=== PATIENT | female | born 1945 | race Caucasian/White ===

== ENCOUNTER 2019-03-13 12:17 | Emergency (ER) | payer MEDICARE, BC, OTHER ==
[2019-03-13] MEDS ORDERED: 0.9 % SODIUM CHLORIDE 1000ML 1,000 ML IV PRN (14:00)
--- NOTE | 2019-03-13 14:02 | Emergency Department Record ---
History of Present Illness - General Chief Complaint: Abdominal Pain Stated Complaint: RIGHT SIDE ABD PAIN Time Seen by Provider: 03/13/19 13:57 Source: Patient, RN notes reviewed Mode of Arrival: Ambulatory - History of Present Illness Initial Comments: right upper quad pain and radiates into her back and shoulder . Started 5 hours ago and pain almost gone now. Primary Dr Cammy Mckeon MD Complaint: Abdominal pain Onset/Timin -: Hour(s) Location: RLQ Radiation: RUQ Severity scale (1-10): 10 Quality: Cramping, Sharp Consistency: Intermittent Improves With: Nothing Worsens With: Nothing - Related Data Home Medications Medication Instructions Recorded Confirmed Last Taken Cholecalciferol (Vitamin D3) 50,000 units PO MONTHLY 03/13/19 03/13/19 03/13/19 [Vitamin D3] Denosumab [Prolia] 60 mg IM ASDIR 03/13/19 03/13/19 Unknown Losartan Potassium 50 mg PO DAILY 03/13/19 03/13/19 03/13/19 Previous Rx's Medication Instructions Recorded Dicyclomine HCl [Bentyl] 10 mg PO Q8H #30 cap 03/13/19 Allergies Allergy/AdvReac Type Severity Reaction Status Date / Time No Known Drug Allergies Allergy Verified 03/13/19 12:38 Travel Screening - Travel/Exposure Within Last 30 Days Have you traveled within the last 30 days?: No - Travel/Exposure Within Last Year Have you traveled outside the [place] in the last year?: No - Additonal Travel Details Have you been exposed to anyone with a communicable illness?: No - Travel Symptoms Symptom Screening: None Review of Systems Reviewed: No additional complaints except as noted below Constitutional: Reports: As per HPI. Denies: Chills, Fever, Malaise, Night sweats, Weakness, Weight change Eyes: Reports: As per HPI. Denies: Eye discharge, Eye pain, Photophobia, Vision change ENT: Reports: As per HPI. Denies: Congestion, Dental pain, Ear pain, Epistaxis, Hearing loss, Throat pain Respiratory: Reports: As per HPI. Denies: Cough, Dyspnea, Hemoptysis, Stridor, Wheezes Cardiovascular: Reports: As per HPI. Denies: Arrhythmia, Chest pain, Dyspnea on exertion, Edema, Murmurs, Orthopnea, Palpitations, Paroxysmal nocturnal dyspnea, Rheumatic Fever, Syncope Endocrine: Reports: As per HPI. Denies: Fatigue, Heat or cold intolerance, Polydipsia, Polyuria Gastrointestinal: Reports: As per HPI, Abdominal pain (right upper quad). Denies: Constipation, Diarrhea, Hematemesis, Hematochezia, Melena, Nausea, Vomiting Genitourinary: Reports: As per HPI. Denies: Abnormal menses, Discharge, Dyspareunia, Dysuria, Frequency, Hematuria, Incontinence, Retention, Urgency Musculoskeletal: Reports: As per HPI. Denies: Arthralgia, Back pain, Gout, Joint swelling, Myalgia, Neck pain Skin: Reports: As per HPI. Denies: Bruising, Change in color, Change in hair/nails, Lesions, Pruritus, Rash Neurological: Reports: As per HPI. Denies: Abnormal gait, Confusion, Headache, Numbness, Paresthesias, Seizure, Tingling, Tremors, Vertigo, Weakness Psychiatric: Reports: As per HPI. Denies: Anxiety, Auditory hallucinations, Depression, Homicidal thoughts, Suicidal thoughts, Visual hallucinations Hematological/Lymphatic: Reports: As per HPI. Denies: Anemia, Blood Clots, Easy bleeding, Easy bruising, Swollen glands Past Medical History - SOCIAL HISTORY Smoking Status: Never smoker Alcohol Use: Occasional Drug Use: None - RESPIRATORY Hx Respiratory Disorders: No - CARDIOVASCULAR Hx Cardio Disorders: No - NEURO Hx Neuro Disorders: No - GI Hx GI Disorders: Yes Comment:: Diarrhea "alot" - Hx Genitourinary Disorders: No - ENDOCRINE Hx Endocrine Disorders: No - MUSCULOSKELETAL Hx Musculoskeletal Disorders: No - PSYCH Hx Psych Problems: No - HEMATOLOGY/ONCOLOGY Hx Hematology/Oncology Disorders: No Family Medical History Any Significant Family History?: Yes Hx Dementia: Brother/Sister Hx Heart Disease: Mother, Brother/Sister Hx HTN: Mother, Brother/Sister Hx Stroke: Mother Physical Exam - General General Appearance: Alert, Oriented x3, Cooperative, No acute distress - Head Head exam: Normal inspection - Eye Eye exam: Normal appearance, PERRL Pupils: Normal accommodation - ENT ENT exam: Normal exam, Mucous membranes moist, Normal external ear exam, Normal orophraynx, TM's normal bilaterally Ear exam: Normal external inspection. negative: External canal tenderness Nasal Exam: Normal inspection. negative: Discharge, Sinus tenderness Mouth exam: Normal external inspection, Tongue normal Teeth exam: Normal inspection. negative: Dental caries Throat exam: Normal inspection. negative: Tonsillar erythema, Tonsillar exudate - Neck Neck exam: Normal inspection, Full ROM. negative: Tenderness - Respiratory Respiratory exam: Normal lung sounds bilaterally. negative: Respiratory distress - Cardiovascular Cardiovascular Exam: Regular rate, Normal rhythm, Normal heart sounds - GI/Abdominal GI/Abdominal exam: Soft, Normal bowel sounds, Tenderness (right upper quad pain and positive pringle sign) - Rectal Rectal exam: Deferred - exam: Deferred - Extremities Extremities exam: Normal inspection, Full ROM, Normal capillary refill. negative: Tenderness - Back Back exam: Reports: Normal inspection, Full ROM. Denies: Muscle spasm, Rash noted, Tenderness - Neurological Neurological exam: Alert, Normal gait, Oriented X3, Reflexes normal - Psychiatric Psychiatric exam: Normal affect, Normal mood - Skin Skin exam: Dry, Intact, Normal color, Warm Course Vital Signs 03/13/19 12:41 Temperature 98.6 F Pulse Rate 78 Respiratory 16 Rate Blood Pressure 130/55 Pulse Ox 100 Medical Decision Making - Data Complexity MDM Data: Labs Ordered and/or Reviewed (WBC 13,500, urine negative , sodium 132), X-Ray Ordered and/or Reviewed (No acute process, cystic mass in the left pelvis 5 cm possible ovarian cyst) - Lab Data Result diagrams: 03/13/19 14:00 03/13/19 14:00 Disposition Clinical Impression: Right upper quadrant abdominal pain, Biliary colic Ovarian cyst Qualifiers: Laterality: left Qualified Code(s): N83.202 - Unspecified ovarian cyst, left side Disposition: Home, Self-Care Condition: (1) Good Instructions: Abdominal Pain (ED) Additional Instructions: avoid greasy foods Prescriptions: Dicyclomine HCl [Bentyl] 10 mg PO Q8H #30 cap Forms: Patient Portal Access Time of Disposition: 17:18 Quality - Quality Measures Quality Measures: N/A - Blood Pressure Screening Does Patient Have Any of the Following: No Blood Pressure Classification: Pre-Hypertensive BP Reading Systolic Measurement: 130 Diastolic Measurement: 55 Screening for High Blood Pressure: < Pre-Hypertensive BP, F/U Documented > [G8950] Pre-Hypertensive Follow-up Interventions: Referral to alternative/primary care provider.
[2019-03-13 14:12] LABS: HEMATOCRIT 36.3 % (35.0-47.0); MEAN CELL VOLUME 84.8 fl (81-97); MEAN CORPUSCULAR HGB CONC 33.1 g/dl (32-36); MEAN PLATELET VOLUME 12.1 fl (7.4-10.4); PLATELET COUNT 233 K/uL (130-400); RED BLOOD COUNT 4.28 M/uL (3.80-5.40); RED CELL DISTRIBUTION WIDTH 14.5 % (11.5-14.5); WHITE BLOOD COUNT W/O DIFF 13.5 K/uL (4.2-12.2)
[2019-03-13 14:24] LABS: BLOOD UREA NITROGEN 11 mg/dL (8-23); CREATININE 0.8 mg/dL (0.5-0.9); EST GLOMERULAR FILTRATION RATE > 60 mL/min
[2019-03-13 14:25] LABS: LIPASE 17 U/L (13-60); TOTAL PROTEIN 7.1 g/dL (6.6-8.7)
[2019-03-13 14:27] LABS: GLUCOSE,RANDOM 91 mg/dL (74-109)
[2019-03-13 14:29] LABS: ALBUMIN 4.1 g/dL (4.0-5.0); ALT/SGPT 9 U/L (<33); AST/SGOT 17 U/L (10.0-35.0)
[2019-03-13 14:30] LABS: ALKALINE PHOSPHATASE 98 U/L (35-104); BILIRUBIN,DIRECT < 0.2 mg/dL (0-0.3)
[2019-03-13 14:31] LABS: ABSOLUTE NEUTROPHIL COUNT 12.11
[2019-03-13 16:23] LABS: URINE APPEARANCE CLEAR; URINE BILIRUBIN NEGATIVE (NEGATIVE); URINE BLOOD NEGATIVE (NEGATIVE); URINE COLOR YELLOW; URINE GLUCOSE (UA) NEGATIVE (NEGATIVE); URINE KETONE 15 mg/dL (NEGATIVE); URINE LEUKOCYTE ESTERASE NEGATIVE (NEGATIVE); URINE NITRITE NEGATIVE (NEGATIVE); URINE PROTEIN NEGATIVE (NEGATIVE); URINE UROBILINOGEN 0.2 E.U./dL (0.20 - 1.00)
--- NOTE | 2019-03-17 16:44 | CT SCAN REPORT ---
DATE: 03/13/2019 at 1425. EXAM: CT OF THE ABDOMEN AND PELVIS WITHOUT CONTRAST. HISTORY: WORSENING RIGHT LOWER QUADRANT PAIN. ELEVATED SERUM WHITE BLOOD CELL COUNT. PRIOR APPENDECTOMY IN 1994. TECHNIQUE: Helical CT examination of the abdomen and pelvis was performed without oral or intravenous contrast administration. Lack of oral and intravenous contrast utilization limits evaluation of the bowel and solid viscera, respectively. COMPARISON: None. FINDINGS: Minor dependent atelectasis in each lung base as well as minor linear scarring versus atelectasis. The wall of the distal esophagus appears mildly thickened likely due to incomplete distension, though a mucosal abnormality would be difficult to exclude. This appearance could also relate to a small, sliding-type hiatal hernia. The heart is not enlarged. No suspicious focal abnormality is demonstrated within the liver, spleen, pancreas, adrenal glands, nor kidneys. The left kidney does appear smaller than the right. This may be developmental or the result of mild atrophy. The gallbladder is unremarkable. No definite biliary ductal dilatation identified. No intra-abdominal nor retroperitoneal lymphadenopathy. There is diffuse atherosclerosis without focal aneurysmal dilatation of the abdominal aorta nor iliac arteries. The uterus is either atrophic or absent. No intrinsic urinary bladder abnormality is seen. There is a well-circumscribed fluid density mass in the left hemipelvis likely arising from the left ovary. This measures 3.9 x 3.5 x 5.3 cm. A benign ovarian cyst is the most likely etiology, though cystic neoplasm is not entirely excluded. If clinically warranted, this could be further evaluated with pelvic ultrasound to confirm its simple cystic appearance. No other evidence of pelvic mass nor adenopathy. There is diverticulosis of the distal colon without evidence of diverticulitis. No gross bowel dilatation nor bowel wall thickening. By history, the appendix is surgically absent. The cecum appears somewhat patulous/fluid distended measuring approximately 5.5 cm in diameter. This is not considered dilated. There is liquid stool from the level of the cecum to the distal transverse colon. No extraluminal air. No lytic or blastic bone lesion. There are degenerative changes scattered throughout the visualized spine associated with mild levoconvex scoliosis. IMPRESSION: 1. LACK OF ORAL AND INTRAVENOUS CONTRAST UTILIZATION LIMITS EVALUATION OF THE BOWEL AND SOLID VISCERA, RESPECTIVELY. 2. NO DEFINITE CT EVIDENCE OF AN ACUTE INTRA-ABDOMINAL NOR INTRAPELVIC PROCESS. 3. OCCASIONAL DIVERTICULA IN THE DISTAL COLON WITHOUT EVIDENCE OF DIVERTICULITIS. LIQUID STOOL WITHIN THE PROXIMAL COLON TO THE DISTAL TRANSVERSE LEVEL. 4. FLUID DENSITY MASS IN THE LEFT HEMIPELVIS MEASURING 5.3 CM IN MAXIMUM DIAMETER. WHILE A SIMPLE BENIGN CYST IS FAVORED, CYSTIC NEOPLASM IS NOT ENTIRELY EXCLUDED. IF CLINICALLY WARRANTED THIS MIGHT BE FURTHER CHARACTERIZED WITH PELVIC SONOGRAPHY. 5. ATROPHY OF THE UTERUS VERSUS HYSTERECTOMY. 6. MINOR LINEAR SCARRING VERSUS ATELECTASIS IN EACH LUNG BASE. 7. APPARENT MILD WALL THICKENING OF THE DISTAL ESOPHAGUS LIKELY RELATES TO INCOMPLETE DISTENSION. THIS APPEARANCE COULD ALSO RELATE TO A SMALL HIATAL HERNIA. Job Number: [id number] [facility]
== END 2019-03-13 17:46 | disposition home or self-care (01) ==
LOC: ER 12:17
DX: K80.50 Calculus of bile duct without cholangitis or cholecystitis without obstruction (principal); N83.202 Unspecified ovarian cyst, left side; R10.11 Right upper quadrant pain
CPT/HCPCS: 74176; 80048; 80076; 81003; 83690; 85027; 99283; 99284